=== PATIENT | male | born 1945 | race Caucasian/White ===

== ENCOUNTER 2019-11-11 19:11 | Emergency (ER) | payer OTHER ==
[~2019-11-11] VITALS: Ht 172.7 cm; Wt 90.7 kg
[2019-11-11] MEDS ORDERED: LIPITOR20 MG PO (19:40)
== END 2019-11-11 23:02 | disposition home or self-care (01) ==
LOC: ED 19:11
DX: K59.00 Constipation, unspecified (principal); E78.5 Hyperlipidemia, unspecified; F17.200 Nicotine dependence, unspecified, uncomplicated; Z79.899 Other long term (current) drug therapy
CPT/HCPCS: 99283